=== PATIENT | female | born 1950 | race Caucasian/White ===

== ENCOUNTER 2019-07-21 06:02 | Day surgery (SDC) | payer MEDICARE, BC ==
[~2019-07-21] VITALS: Ht 162.6 cm; Wt 99.0 kg
[~2019-07-21 06:02] MED LIST: ALEN70 PO; Aspir 8181 MG PO; BUDE6HFA; ESCI20; FISH1000; HYDACE10B; NITR.4SL SL; PANT40; PROAIR DIGIHAL90 MCG IH; ROSU10TA; ZYRTEC10 M2 PO
[2019-07-21 06:40] LABS: BASOPHILS ABSOLUTE AUTO 0.09 K/mm3 (0.00-0.23); BASOPHILS PERCENT AUTO 1 % (0-2); EOSINOPHILS ABSOLUTE AUTO 0.24 K/mm3 (0.00-0.68); EOSINOPHILS PERCENT AUTO 3 % (0-6); Hematocrit 41.4 % (33.0-51.0); Hemoglobin 13.8 g/dL (11.5-16.0); IMMATURE GRAN ABSOLUTE AUTO 0.02 K/mm3 (0.00-0.10); IMMATURE GRAN PERCENT AUTO 0 % (0-1); LYMPHOCYTES ABSOLUTE AUTO 2.32 K/mm3 (0.84-5.20); LYMPHOCYTES PERCENT AUTO 27 % (21-46); MONOCYTES ABSOLUTE AUTO 0.95 K/mm3 (0.16-1.47); MONOCYTES PERCENT AUTO 11 % (4-13); Mean Corpuscular HGB 29.8 pg (26.0-34.0); Mean Corpuscular HGB Conc 33.3 g/dL (31.5-36.5); Mean Corpuscular Volume 89 fL (80-100); Mean Platelet Volume 8.8 fL (9.1-12.4); NEUTROPHILS PERCENT AUTO 58 % (41-73); Platelet Count 256 K/mm3 (150-400); RDW Coefficient Variation 13.6 % (11.7-14.2); RDW Standard Deviation 44.6 fL (35.1-46.3); Red Blood Cell Count 4.63 M/mm3 (3.80-5.20); White Blood Cell Count 8.52 K/mm3 (4.00-11.30)
[2019-07-21 06:54] LABS: Anion Gap 7 mmol/L (6-16); Blood Urea Nitrogen 12 mg/dL (8-24); Bun/Creatinine Ratio 15.7 (12.0-20.0); CO2, Blood 27 mmol/L (21-32); Calcium, Blood 8.8 mg/dL (8.5-10.1); Chloride, Blood 108 mmol/L (98-108); Creatinine, Blood 0.76 mg/dL (0.40-1.00); Glomerular Filtration Rate >60 (60-); Glucose, Blood 109 mg/dL (70-99); International Normalized Ratio 0.95; Potassium, Blood 3.5 mmol/L (3.5-5.5); Prothrombin Time Results 10.2 Sec (9.7-11.5); Sodium, Blood 142 mmol/L (136-145)
--- NOTE | 2019-07-21 08:17 | NUR ---
PT RETURNED TO RECOVERY ROOM IN [facility]. RIGHT RADIAL TR BAND SITE SOFT NON-TENDER WITH NO HEMATOMA, NO PULSATILE BLEEDING. PT DENIES CHEST PAIN. CALL LIGHT IN REACH. PT DRINKING COFFEE.
--- NOTE | 2019-07-21 08:31 | NUR ---
NO CHANGES TO RIGHT RADIAL TR BAND SITE. FULL REPORT PROVIDED EVAN CUENCA TO ASSUME CARE OF PT IN RECOVERY ROOM.
--- NOTE | 2019-07-21 09:43 | NUR ---
3mL AIR RELEASED FROM TR BAND. NO BLEEDING, OOZING OR HEMATOMA NOTED. VSS. WILL CONTINUE TO MONITOR.
--- NOTE | 2019-07-21 09:53 | NUR ---
AIR FULLY RELEASED FROM TR BAND. SOME BRUSING NOTED UNDER TR BAND BUT NO BLEEDING, OOZING OR HEMATOMA NOTED. VSS. WILL CONTINUE TO MONITOR.
--- NOTE | 2019-07-21 11:02 | NUR ---
DISCHARGE PT AMBULATED TO RESTROOM AND DRESSED SELF WITH NO COMPLICATIONS. TR BAND REMOVED FROM R RAD AND CLOTH DOT DRESSING APPLIED. NO BLEEDING, OOZING OR HEMATOMA NOTED. WHITE BOARD PLACED BACK ON WRIST. PT SENT HOME IN [place]. VSS. IV DCD WITH CATH INTACT. PT STATES HER UNDERSTANDING OF DC AND SITE CARE INSTRUCTIONS AND DENIES ANY QUESTIONS OR CONCERNS. PT TAKEN TO EXIT VIA WC.
== END 2019-07-21 11:11 | disposition home or self-care (01) ==
LOC: MHTC 06:02
PROVIDERS: Internal Medicine Cardiovascular Disease
PROC: B2111ZZ Fluoroscopy of Multiple Coronary Arteries using Low Osmolar Contrast (ICD-10-PCS; principal; 2019-07-21)
PROC: 4A023N7 Measurement of Cardiac Sampling and Pressure, Left Heart, Percutaneous Approach (ICD-10-PCS; principal; 2019-07-21)
DX: R07.9 Chest pain, unspecified (principal); R94.31 Abnormal electrocardiogram [ECG] [EKG]; R94.39 Abnormal result of other cardiovascular function study; I25.10 Atherosclerotic heart disease of native coronary artery without angina pectoris; E78.5 Hyperlipidemia, unspecified; J44.9 Chronic obstructive pulmonary disease, unspecified; K21.9 Gastro-esophageal reflux disease without esophagitis; Z87.891 Personal history of nicotine dependence; Z88.6 Allergy status to analgesic agent; Z79.82 Long term (current) use of aspirin; Z79.899 Other long term (current) drug therapy
CPT/HCPCS: 76937; 80048; 85025; 85610; 93454; 99152; 99153; C1769; C1894; J1644; J2250; J3010; J7030; Q9967